=== PATIENT | male | born 2000 | race Caucasian/White ===

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

== ENCOUNTER 2024-10-29 17:57 | Emergency (ER) | payer BC, SELFPAY ==
[2024-10-29 17:58] VITALS: BP 157/101; PULSE 102; RESP 20; TEMP 36.7; O2SAT 100; BMI 25.0
[2024-10-29 18:02] VITALS: BP 157/101; PULSE 105; O2SAT 100
--- NOTE | 2024-10-29 18:11 | XR_ITS ---
PROCEDURE INFORMATION: Exam: XR Left Knee Exam date and time: 10/29/2024 6:15 PM Age: 24 years old Clinical indication: Injury or trauma; Fall; Blunt trauma; Thigh or upper leg; Left TECHNIQUE: Imaging protocol: Radiologic exam of the left knee. Views: 3 views. COMPARISON: CR XR KNEE LT 3V 10/29/2024 6:15 PM FINDINGS: Bones/joints: Normal. Soft tissues: Normal. IMPRESSION: No acute findings.
--- NOTE | 2024-10-29 18:11 | XR_ITS ---
PROCEDURE INFORMATION: Exam: XR Left Tibia and Fibula Exam date and time: 10/29/2024 6:15 PM Age: 24 years old Clinical indication: Injury or trauma; Fall; Blunt trauma; Thigh or upper leg; Left TECHNIQUE: Imaging protocol: Radiologic exam of the left tibia and fibula. Views: 2 views. COMPARISON: CR XR TIBIA FIBULA LT 2V 10/29/2024 6:15 PM FINDINGS: Bones/joints: Normal. Soft tissues: Normal. IMPRESSION: No acute findings.
--- NOTE | 2024-10-29 18:11 | XR_ITS ---
PROCEDURE INFORMATION: Exam: XR Left Femur Exam date and time: 10/29/2024 6:15 PM Age: 24 years old Clinical indication: Injury or trauma; Fall; Blunt trauma; Thigh or upper leg; Left TECHNIQUE: Imaging protocol: Radiologic exam of the left femur. Views: 2 views. COMPARISON: CR XR KNEE LT 3V 10/29/2024 6:15 PM FINDINGS: Bones/joints: Unremarkable. No acute fracture. Soft tissues: Unremarkable. IMPRESSION: No acute findings.
--- NOTE | 2024-10-29 18:13 | HMH.EDGENADL ---
Discharge Plan Disposition Patient Disposition: Home, Self-Care Condition: Good Prescriptions Prescriptions: New methocarbamol 1,000 mg tablet 1,000 mg PO Q6H 2 Days Qty: 8 0RF lidocaine HCl-menthol 4-4 % adhesive patch,medicated 1 patch topical TID Qty: 15 0RF No Action prednisone 5 MG tablets,dose pack 5 mg PO UD DOSE PK Qty: 21 0RF Referrals Follow up/Referrals: Emmanuel Flores DO [Staff Physician] - See instructions Faraz James [Primary Care Provider] - See instructions Activity Restrictions/Add. Instructions Additional Instructions/Restrictions: Ice, elevate. Use Yannick wrap and lidocaine patches for pain. Also use muscle relaxers for pain. Please follow-up with Dr. Flores for further imaging if pain persists. Clinical Impressions Clinical Impression: Knee derangement syndrome Instructions Patient Instructions: Sprain Print Language Print Language: Israeli Discharge ED Provider: Eric Madrigal Adult HPI <Miriam Fabian (ED), REAL ESTATE LISTING CONSULTANT - Last Filed: 10/29/24 20:21> General Chief complaint: Extremity Injury, Lower Stated complaint: L knee pain ao Time Seen by Provider: 10/29/24 18:03 History of Present Illness HPI narrative: 24-year-old male presents to the ED after falling in the med while hunting today. He says this happened approximately 3:00 today. He hurt his left knee and is unable to bear weight on the knee. He said initially he was just moving and trying to keep the knee moving while he was hunting. Once he got home and was not moving as much the pain got worse and brought him to the emergency room. No other injuries noted. No back pain. Related Data Previous Rx's ?Medication ?Instructions ?Recorded prednisone 5 mg tablets in a dose 5 mg PO UD DOSE PK ##21 02/24/19 pack lidocaine HCl 4 %-menthol 4 % 1 patch topical TID #15 ea 10/29/24 topical patch methocarbamol 1,000 mg tablet 1,000 mg PO Q6H 48 hours #8 tabs 10/29/24 Allergies Allergy/AdvReac Type Severity Reaction Status Date / Time acetaminophen Allergy Intermediate Hives Verified 10/29/24 20:15 ibuprofen Allergy Intermediate Hives Verified 10/29/24 20:15 PFSH <Miriam Fabian (ED), REAL ESTATE LISTING CONSULTANT - Last Filed: 10/29/24 20:21> [facility] Disclaimer: The information contained in this section may have been updated after the patient was seen, as this information can be updated by other users. Social History Smoking Status: Never smoker alcohol intake: never current occupational status: student Travel in the last 8 weeks: None Have you lived/traveled outside US in past 30 days?: No Contact w/someone who lives/traveled outside US past 30 days?: No Exposure to someone with infectious disease in past 14 days?: No Do you have a fever (greater than 100.4 F or 38 C)?: No Have you tested positive for COVID-19: No Exposed to someone with COVID-19 in past 14 days?: No Do you have a sore throat?: No Do you have a cough?: No Do you have any weakness?: No Do you have any diarrhea?: No Are you experiencing any unusual bleeding?: No Do you have any muscle aches/pain?: No Do you have any abdominal pain?: No Are you experiencing loss of taste or smell?: No Other Medical History Have you received the Flu Vaccine for this season: No <Miriam Fabian (ED), REAL ESTATE LISTING CONSULTANT - Last Filed: 10/29/24 20:21> ROS Obtained: Yes Systems reviewed as appropriate & no additional complaints except as documented Constitutional Constitutional: Reports as per HPI Physical Exam <Miriam Fabian (ED), REAL ESTATE LISTING CONSULTANT - Last Filed: 10/29/24 20:21> General General appearance: alert and in distress Head Head exam: atraumatic and normocephalic Eye Eye exam: Present normal appearance, PERRL and EOMI ENT ENT exam: Present normal oropharynx and mucous membranes moist Neck Neck exam: Present trachea midline Respiratory Respiratory exam: Present normal lung sounds bilaterally Cardiovascular Cardiovascular exam: Present regular rate, normal rhythm, normal heart sounds, +S1 and +S2 Extremities Exam Extremities exam: Present tenderness (Left knee medially), normal capillary refill and edema Neurological Exam Neurological exam: Present alert and oriented X3 Skin Skin exam: Present warm, dry and intact Medical Decision Making <Miriam Fabian (ED), REAL ESTATE LISTING CONSULTANT - Last Filed: 10/29/24 20:21> Medical Records Screening: Per USPSTF and CDC recommendations, given the prevalence of disease in our region, it is our hospital?s policy to screen for HIV and viral Hepatitis for all patients aged 18 and over and those with ongoing risk factors. Britton Inquiry Pt receiving controlled substance: Yes Britton was queried for this patient: No Risks and benefits of using a controlled substance: were discussed with pt by me Vital Signs: 10/29/24 17:58 10/29/24 18:02 10/29/24 18:31 Temperature 98.0 F Temperature Source Oral Pulse Rate 105 H 99 H Pulse Rate [Right] 102 H Respiratory Rate 20 Blood Pressure 157/101 H 142/92 H Blood Pressure [Right Arm] 157/101 H Blood Pressure Mean [Right Arm] 119 Blood Pressure Source [Right Arm] Automatic Cuff 02 Sat by Pulse Oximetry 100 100 100 Oxygen Delivery Method Room Air Room Air Room Air 10/29/24 19:00 10/29/24 20:28 Temperature 98 F Temperature Source Oral Pulse Rate 85 92 H Pulse Rate [Right] Respiratory Rate 20 Blood Pressure 131/75 143/87 H Blood Pressure [Right Arm] Blood Pressure Mean [Right Arm] Blood Pressure Source [Right Arm] 02 Sat by Pulse Oximetry 98 Oxygen Delivery Method Room Air Orders (Tests/Meds): ED MEDICATIONS Discontinued Medications Generic Name Dose Route Start Last Admin Trade Name Freq PRN Reason Stop Dose Admin Ondansetron HCl 4 mg 10/29/24 18:10 10/29/24 18:18 Ondansetron 4mg Odt SL 10/29/24 18:11 4 mg ONCE ONE Administration Oxycodone HCl 5 mg 10/29/24 18:10 10/29/24 18:18 Oxycodone 5mg Immediate Release Tablet PO 10/29/24 18:11 5 mg ONCE ONE Administration ORDERS Category Date Time Status CT knee LT wo con Stat Cat Scan 10/29/24 19:08 Completed Femur XR left 2 views [XR femur LT 2V] Stat Exams 10/29/24 18:11 Completed Tibia/fibula XR left 2 views [XR tibia fibula LT 2V] Exams 10/29/24 18:11 Completed Stat XR knee LT 3V Stat Exams 10/29/24 18:11 Completed Medical Decision Narrative: Insert review patient is a 24-year-old male presenting to the emergency department for evaluation of left knee pain after falling in some mud today. He has left knee pain with any movement. He says he cannot bear weight. Patient is hemodynamically stable and nontoxic-appearing upon arrival, afebrile. Differential diagnosis includes knee sprain strain versus fracture. Workup will be conducted with left knee, left femur left tib-fib imaging and CT scan if those are negative. Initial inventions include analgesics. Initial workup reviewed by me remarkable for no acute findings on films. Imaging informally interpreted by me and remarkable for no acute finding on films. Formal imaging showed nothing acute on plain films so I ordered a CT scan to rule out tibial plateau fracture. CT scan was negative for acute fracture. Patient will be given crutches and Yannick wrap and follow-up with Dr. Flores. <Eric Madrigal MD - Last Filed: 10/29/24 21:42> Vital Signs: 10/29/24 17:58 10/29/24 18:02 10/29/24 18:31 Temperature 98.0 F Temperature Source Oral Pulse Rate 105 H 99 H Pulse Rate [Right] 102 H Respiratory Rate 20 Blood Pressure 157/101 H 142/92 H Blood Pressure [Right Arm] 157/101 H Blood Pressure Mean [Right Arm] 119 Blood Pressure Source [Right Arm] Automatic Cuff 02 Sat by Pulse Oximetry 100 100 100 Oxygen Delivery Method Room Air Room Air Room Air 10/29/24 19:00 10/29/24 20:28 Temperature 98 F Temperature Source Oral Pulse Rate 85 92 H Pulse Rate [Right] Respiratory Rate 20 Blood Pressure 131/75 143/87 H Blood Pressure [Right Arm] Blood Pressure Mean [Right Arm] Blood Pressure Source [Right Arm] 02 Sat by Pulse Oximetry 98 Oxygen Delivery Method Room Air Orders (Tests/Meds): ED MEDICATIONS Discontinued Medications Generic Name Dose Route Start Last Admin Trade Name Freq PRN Reason Stop Dose Admin Ondansetron HCl 4 mg 10/29/24 18:10 10/29/24 18:18 Ondansetron 4mg Odt SL 10/29/24 18:11 4 mg ONCE ONE Administration Oxycodone HCl 5 mg 10/29/24 18:10 10/29/24 18:18 Oxycodone 5mg Immediate Release Tablet PO 10/29/24 18:11 5 mg ONCE ONE Administration ORDERS Category Date Time Status CT knee LT wo con Stat Cat Scan 10/29/24 19:08 Completed Femur XR left 2 views [XR femur LT 2V] Stat Exams 10/29/24 18:11 Completed Tibia/fibula XR left 2 views [XR tibia fibula LT 2V] Exams 10/29/24 18:11 Completed Stat XR knee LT 3V Stat Exams 10/29/24 18:11 Completed Medical Decision Narrative: Insert review patient is a 24-year-old male presenting to the emergency department for evaluation of left knee pain after falling in some mud today. He has left knee pain with any movement. He says he cannot bear weight. Patient is hemodynamically stable and nontoxic-appearing upon arrival, afebrile. Differential diagnosis includes knee sprain strain versus fracture. Workup will be conducted with left knee, left femur left tib-fib imaging and CT scan if those are negative. Initial inventions include analgesics. Initial workup reviewed by me remarkable for no acute findings on films. Imaging informally interpreted by me and remarkable for no acute finding on films. Formal imaging showed nothing acute on plain films so I ordered a CT scan to rule out tibial plateau fracture. CT scan was negative for acute fracture. Patient will be given crutches and Yannick wrap and follow-up with Dr. Flores. I was consulted by the KYM, and we discussed the complexity of the problems being addressed. I approve the treatment and management plan for this patient's care in the emergency department, thus performing a substantive portion of the medical decision making. Eric Madrigal MD Critical Care <Miriam Fabian (ED), REAL ESTATE LISTING CONSULTANT - Last Filed: 10/29/24 20:21> Critical Care Time Critical Care Time: No
--- NOTE | 2024-10-29 18:16 | PC.NURSE ---
XR AT BEDSIDE
[2024-10-29] MEDS: OXYCODONE 5MG IMMEDIATE RELEASE TABLET 5 MG PO (18:18)
[2024-10-29] MEDS: ONDANSETRON 4MG ODT 4 MG SL (18:18)
[2024-10-29 18:31] VITALS: BP 142/92; PULSE 99; O2SAT 100
[2024-10-29 19:00] VITALS: BP 131/75; PULSE 85; O2SAT 98
--- NOTE | 2024-10-29 19:08 | CT_ITS ---
PROCEDURE INFORMATION: Exam: CT Left Lower Extremity, Knee Exam date and time: 10/29/2024 7:13 PM Age: 24 years old Clinical indication: Injury or trauma; Fall; Sprain or strain; Patella or knee; Left TECHNIQUE: Imaging protocol: CT of the left lower extremity without contrast was performed. Exam focused on the knee. Radiation optimization: All CT scans at this facility use at least one of these dose optimization techniques: automated exposure control; mA and/or kV adjustment per patient size (includes targeted exams where dose is matched to clinical indication); or iterative reconstruction. COMPARISON: 1. CR XR KNEE LT 3V 10/29/2024 6:15 PM 2. CR XR FEMUR LT 2V 10/29/2024 6:15 PM FINDINGS: Bones/joints: Normal. No acute fracture or dislocation. Soft tissues: There is mild soft tissue swelling about the knee without acute osseous injury identified. IMPRESSION: 1. There is mild soft tissue swelling about the knee without acute osseous injury identified. 2. If clinical concern persists, MRI would be suggested.
--- NOTE | 2024-10-29 20:23 | PC.NURSE ---
JUAN wrap to L knee applied per provider along with crutches X2. Pt instructed to amulate with crutches to verify safety and demonstration of proper use. pt placed back in bed, awaiting dc papers.
[2024-10-29 20:28] VITALS: BP 143/87; PULSE 92; RESP 20; TEMP 36.6; O2SAT 99
--- NOTE | 2024-10-29 21:22 | PC.NURSE ---
pt contacted ED after they had leaving to switch the prescription to [facility] in [place].
== END 2024-10-29 20:30 | disposition home or self-care (01) ==
PROVIDERS: Emergency Provider Student in an Organized Health Care Education/Training Program; PCP Family Medicine
DX: M23.92 Unspecified internal derangement of left knee (principal); M25.562 Pain in left knee; W01.0XXA Fall on same level from slipping, tripping and stumbling without subsequent striking against object, initial encounter; Y93.89 Activity, other specified; Y92.89 Other specified places as the place of occurrence of the external cause
CPT/HCPCS: 73552; 73562; 73590; 73700; 99284; Q0162